=== PATIENT | female | born 2000 | race American Indian/Alaskan Native ===

== ENCOUNTER 2022-04-10 08:09 | Emergency (ER) | payer OTHER ==
[~2022-04-10] VITALS: Ht 165.1 cm; Wt 48.5 kg
[~2022-04-10 08:09] MED LIST: PRENATAL TABLE1 EAC1 PO
== END 2022-04-10 12:04 | disposition home or self-care (01) ==
LOC: ER 08:09
DX: M79.652 Pain in left thigh (principal)

== ENCOUNTER 2022-05-17 12:22 | Emergency (ER) | payer OTHER ==
[~2022-05-17] VITALS: Ht 152.4 cm; Wt 48.1 kg
== END 2022-05-17 17:55 | disposition home or self-care (01) ==
LOC: ER 12:22
DX: J11.1 Influenza due to unidentified influenza virus with other respiratory manifestations (principal)

== ENCOUNTER 2022-12-05 08:37 | Emergency (ER) | payer OTHER ==
[~2022-12-05] VITALS: Ht 162.6 cm; Wt 46.3 kg
== END 2022-12-05 11:47 | disposition home or self-care (01) ==
LOC: ER 08:37
DX: B34.9 Viral infection, unspecified (principal); Z20.822 Contact with and (suspected) exposure to COVID-19

== ENCOUNTER 2023-02-26 07:37 | Emergency (ER) | payer OTHER ==
[~2023-02-26] VITALS: Ht 154.9 cm; Wt 47.2 kg
== END 2023-02-26 11:07 | disposition home or self-care (01) ==
LOC: ER 07:37
DX: J11.1 Influenza due to unidentified influenza virus with other respiratory manifestations (principal); R11.10 Vomiting, unspecified; Z20.822 Contact with and (suspected) exposure to COVID-19

== ENCOUNTER 2023-10-01 13:14 | Emergency (ER) | payer OTHER ==
[~2023-10-01] VITALS: Ht 152.4 cm; Wt 47.6 kg
[2023-10-01] MEDS ORDERED: CEFTRIAXONE SODIUM 1,000 MG VIAL IM STA (15:05)
== END 2023-10-01 15:17 | disposition home or self-care (01) ==
LOC: ER 13:15
DX: J32.9 Chronic sinusitis, unspecified (principal)

== ENCOUNTER 2023-11-10 12:02 | Emergency (ER) | payer OTHER ==
[~2023-11-10] VITALS: Ht 152.4 cm; Wt 52.2 kg
[2023-11-10 14:25] LABS: PH,URINE 7.5 (5.0-8.0); URINE APPEARANCE Clear; URINE BILIRRUBIN Negative (NEGATIVE); URINE BLOOD Large; URINE COLOR Yellow; URINE GLUCOSE Negative (NEGATIVE); URINE LEUKOCYTE Negative; URINE NITRATE Negative; URINE PROTEIN Negative (NEGATIVE); URINE UROBILINOGEN 0.2 E.U./dl
[2023-11-10 14:29] LABS: URINE BACTERIA 692.8 uL (0.0-1933); URINE WBC 18.3 uL (0.0-23.2)
[2023-11-10 15:02] LABS: HEMATOCRIT 36.1 % (36.0-45.00); HEMOGLOBIN 12.3 g/dL (12.0-15.00); MEAN CELL VOLUME 86.1 fL (80.00-100.00); MEAN CORPUSCULAR HEMOGLOBIN 29.2 pg (27.00-32.0); PLATELET COUNT 295 K/uL (150-450); RED BLOOD COUNT 4.19 M/uL (4.00-6.00); RED CELL DISTRIBUTION WIDTH 12.7 % (11.5-14.5)
[2023-11-10 15:06] LABS: URINE RBC 1.7 uL (0.0-20.8)
[2023-11-10 15:17] LABS: ALBUMIN 3.9 gm/dL (3.4-5.0); BILIRUBIN TOTAL 1.27 mg/dL (0.3-1.2); CREATININE SERUM 0.6 mg/dL (0.55-1.02); GFR 122.82; GLOBULINA 3.3 G/DL (2.4-3.5); POTASSIUM 3.44 mEq/L (3.5-5.1); TOTAL PROTEIN 7.2 gm/dL (6.4-8.2)
== END 2023-11-10 16:03 | disposition home or self-care (01) ==
LOC: ER 12:02
PROVIDERS: General Practice
DX: N92.3 Ovulation bleeding (principal); N83.202 Unspecified ovarian cyst, left side; Z33.1 Pregnant state, incidental